=== PATIENT | female | born 1960 | race Caucasian/White ===

== ENCOUNTER 2018-05-05 20:10 | Inpatient (IN) | payer OTHER ==
[2018-05-05] MEDS ORDERED: ALBUTEROL/IPRATROPIUM (NEB) 3 ML AMP HHN (21:30)
[2018-05-05] MEDS ORDERED: NACL 0.9% 3 ML SYG IV (21:30)
[2018-05-05] MEDS: DEXTROSE 5%-0.45% NACL 1,000 ML IV (22:35)
[2018-05-05] MEDS: morphine 2 MG INJ IV (22:42)
[2018-05-06] MEDS: KETOROLAC 30 MG INJ IV ×3 (00:03→13:55)
[2018-05-06 00:50] LABS: ADD MAN DIFF? NO
[2018-05-06 00:53] LABS: BASOPHILS % 0.4 % (0.0-2.0); EOSINOPHILS % 0.2 % (0.0-7.0); HEMOGLOBIN 12.4 g/dl (12.0-16.0); LYMPHOCYTES # 2.2 10^3/ul (0.8-2.9); LYMPHOCYTES % 24.6 % (15.0-51.0); MEAN CORPUSCULAR HGB CONC 33.5 g/dl (32.0-37.0); MEAN CORPUSCULAR VOLUME 86.4 fl (82.0-101.0); MEAN PLATELET VOLUME 10.1 fl (7.4-10.4); MONOCYTE # 0.7 10^3/ul (0.3-0.9); MONOCYTES % 7.4 % (0.0-11.0); NEUTROPHIL # 6.1 10^3/ul (1.6-7.5); NEUTROPHILS % 67.1 % (39.0-77.0); PLATELET COUNT 220 10^3/UL (140-415); RED BLOOD COUNT 4.28 10^6/ul (4.20-5.40); RED CELL DISTRIBUTION WIDTH 13.7 % (11.5-14.5)
[2018-05-06 00:53] LABS: WHITE BLOOD COUNT 9.1 10^3/ul (4.8-10.8)
[2018-05-06 01:14] LABS: CREATINE KINASE 66 IU/L (23-200)
[2018-05-06 01:15] LABS: ALANINE AMINOTRANSFERASE 31 IU/L (13-69); ALBUMIN 4.1 g/dl (3.3-4.9); ALBUMIN/GLOBULIN RATIO 1.46; ALKALINE PHOSPHATASE 67 IU/L (42-121); ANION GAP 11 (5-13); ASPARTATE AMINO TRANSFERASE 33 IU/L (15-46); BILIRUBIN,INDIRECT 0.5 mg/dl (0-1.1); BILIRUBIN,TOTAL 0.5 mg/dl (0.2-1.3); BLOOD UREA NITROGEN 8 mg/dl (7-20); CALCIUM 9.3 mg/dl (8.4-10.2); CARBON DIOXIDE 25 mmol/L (21-31); CHLORIDE 102 mmol/L (97-110); CREATININE 0.57 mg/dl (0.44-1.00); Estimated GFR > 60 mL/min (>60); GLUCOSE 114 mg/dl (70-220); MAGNESIUM 1.9 mg/dl (1.7-2.5); PHOSPHORUS 3.7 mg/dl (2.5-4.9); POTASSIUM 3.5 mmol/L (3.5-5.1); SODIUM 138 mmol/L (135-144); TOTAL PROTEIN 6.9 g/dl (6.1-8.1)
[2018-05-06 01:25] LABS: CK INDEX 0.8; CK-MB 0.52 ng/ml (0.0-2.4); TROPONIN-I < 0.012 ng/ml (0.000-0.120)
[2018-05-06] MEDS ORDERED: EPHEDrine SULFATE 50 MG/5 ML SYG (07:00)
[2018-05-06] MEDS: DEXTROSE 5%-0.45% NACL 1,000 ML IV ×2 (08:33→18:03)
[2018-05-06] MEDS: FAMOTIDINE 20 MG INJ IV ×2 (08:33→21:23)
[2018-05-06 08:49] LABS: CREATINE KINASE 52 IU/L (23-200)
[2018-05-06 08:55] LABS: LIPASE 47 U/L (23-300)
[2018-05-06 08:57] LABS: CK INDEX 0.8; CK-MB 0.42 ng/ml (0.0-2.4); TROPONIN-I < 0.012 ng/ml (0.000-0.120)
[2018-05-06] MEDS: PIPER-TAZO 3.375 GM IV (PMX) 100 ML IVPB ×2 (13:39→18:00)
[2018-05-06] MEDS ORDERED: ROCURONIUM 50 MG INJ (17:27)
[2018-05-06] MEDS ORDERED: ROPIVACAINE 0.5 % 30 ML VIAL (17:27)
[2018-05-06] MEDS ORDERED: PROPOFOL 20 ML (17:27)
[2018-05-06] MEDS ORDERED: CEFAZOLIN 1 GM INJ (17:27)
[2018-05-06] MEDS ORDERED: MIDAZOLAM 1 MG/ML 2 ML INJ (17:27)
[2018-05-06] MEDS ORDERED: BUPIVACAINE 0.25%/EPI (SDV) 30 ML INJ (17:36)
[2018-05-06] MEDS ORDERED: LIDOCAINE 1% (STERILE-PAK) 30 ML INJ (17:36)
[2018-05-06] MEDS ORDERED: PHENYLephrine (100 MCG/ML) 5ML SYG (18:18)
[2018-05-06] MEDS ORDERED: ONDANSETRON 4 MG INJ (18:26)
[2018-05-06] MEDS ORDERED: ACETAMINOPHEN 1000MG/100ML IV 100 ML (18:26)
[2018-05-06] MEDS ORDERED: DEXAMETHASONE 4 MG/ML 1 ML INJ (18:27)
[2018-05-06] MEDS ORDERED: METOCLOPRAMIDE 10 MG INJ (18:27)
[2018-05-06] MEDS ORDERED: KETOROLAC 30 MG INJ (18:27)
[2018-05-06] MEDS ORDERED: HYDROmorphONE 1 MG/5 ML IV SYRINGE IV (18:30)
[2018-05-06] MEDS ORDERED: FENTAnyl 50 MCG/ML VIAL IV ×3 (18:30)
[2018-05-06] MEDS ORDERED: EPHEDrine SULFATE 50 MG/5 ML SYG IV (18:30)
[2018-05-06] MEDS ORDERED: LABETALOL HCL 20MG INJ IV (18:30)
[2018-05-06] MEDS ORDERED: MEPERIDINE 25 MG INJ IV (18:30)
[2018-05-06] MEDS ORDERED: DIPHENHYDRAMINE 50 MG INJ IV (18:30)
[2018-05-06] MEDS ORDERED: METOCLOPRAMIDE 10 MG INJ IV (18:30)
[2018-05-06] MEDS ORDERED: OXYCODONE/ACETAMINOPHEN (5/325) TAB PO (18:30)
[2018-05-06] MEDS ORDERED: ONDANSETRON 4 MG INJ IV (18:30)
[2018-05-06] MEDS ORDERED: metroNIDAZOLE 500 MG/NS (PMX) 100 ML IVPB (18:31)
[2018-05-06] MEDS ORDERED: NEOSTIGMINE 3 MG/3 ML SYRINGE (18:59)
[2018-05-06] MEDS ORDERED: GLYCOPYRROLATE 0.4 MG INJ (18:59)
[2018-05-06] MEDS: HYDROmorphONE 1 MG/5 ML IV SYRINGE IV ×2 (19:26→19:44)
[2018-05-07] MEDS: PIPER-TAZO 3.375 GM IV (PMX) 100 ML IVPB ×4 (00:24→17:11)
[2018-05-07] MEDS: DEXTROSE 5%-0.45% NACL 1,000 ML IV (00:24)
[2018-05-07] MEDS: morphine 2 MG INJ IV (05:42)
[2018-05-07 07:16] LABS: ADD MAN DIFF? NO
[2018-05-07 07:25] LABS: WHITE BLOOD COUNT 6.2 10^3/ul (4.8-10.8)
[2018-05-07 07:25] LABS: BASOPHILS % 0.3 % (0.0-2.0); HEMATOCRIT 34.7 % (37.0-47.0); HEMOGLOBIN 11.7 g/dl (12.0-16.0); LYMPHOCYTES # 0.8 10^3/ul (0.8-2.9); LYMPHOCYTES % 13.1 % (15.0-51.0); MEAN CORPUSCULAR HEMOGLOBIN 29.4 pg (29.0-33.0); MEAN CORPUSCULAR HGB CONC 33.7 g/dl (32.0-37.0); MEAN CORPUSCULAR VOLUME 87.2 fl (82.0-101.0); MEAN PLATELET VOLUME 10.5 fl (7.4-10.4); MONOCYTE # 0.4 10^3/ul (0.3-0.9); MONOCYTES % 5.8 % (0.0-11.0); NEUTROPHILS % 80.5 % (39.0-77.0); PLATELET COUNT 212 10^3/UL (140-415); RED BLOOD COUNT 3.98 10^6/ul (4.20-5.40)
[2018-05-07 07:44] LABS: MAGNESIUM 1.9 mg/dl (1.7-2.5)
[2018-05-07 07:50] LABS: ALANINE AMINOTRANSFERASE 107 IU/L (13-69); ALBUMIN 3.5 g/dl (3.3-4.9); ALBUMIN/GLOBULIN RATIO 1.29; ALKALINE PHOSPHATASE 82 IU/L (42-121); ANION GAP 6 (5-13); ASPARTATE AMINO TRANSFERASE 146 IU/L (15-46); BILIRUBIN,INDIRECT 0.5 mg/dl (0-1.1); BILIRUBIN,TOTAL 0.5 mg/dl (0.2-1.3); BLOOD UREA NITROGEN 4 mg/dl (7-20); CARBON DIOXIDE 28 mmol/L (21-31); CHLORIDE 107 mmol/L (97-110); CREATININE 0.65 mg/dl (0.44-1.00); Estimated GFR > 60 mL/min (>60); GLUCOSE 119 mg/dl (70-220); POTASSIUM 4.4 mmol/L (3.5-5.1); SODIUM 141 mmol/L (135-144); TOTAL PROTEIN 6.2 g/dl (6.1-8.1)
[2018-05-07] MEDS: FAMOTIDINE 20 MG INJ IV (08:54)
[2018-05-07] MEDS: KETOROLAC 30 MG INJ IV ×2 (09:01→15:23)
[2018-05-07] MEDS: SERTRALINE 50 MG TAB PO (11:36)
[2018-05-07] MEDS: METHOCARBAMOL 500 MG TAB PO ×2 (12:15→21:16)
[2018-05-08] MEDS: PIPER-TAZO 3.375 GM IV (PMX) 100 ML IVPB ×2 (00:26→05:32)
[2018-05-08] MEDS: KETOROLAC 30 MG INJ IV (03:32)
[2018-05-08 06:44] LABS: ADD MAN DIFF? NO
[2018-05-08 06:51] LABS: BASOPHIL # 0.1 10^3/ul (0.0-0.1); BASOPHILS % 0.7 % (0.0-2.0); EOSINOPHILS # 0.1 10^3/ul (0.0-0.5); EOSINOPHILS % 2.1 % (0.0-7.0); HEMATOCRIT 35.5 % (37.0-47.0); HEMOGLOBIN 11.9 g/dl (12.0-16.0); LYMPHOCYTES # 2.5 10^3/ul (0.8-2.9); LYMPHOCYTES % 36.2 % (15.0-51.0); MEAN CORPUSCULAR HEMOGLOBIN 29.5 pg (29.0-33.0); MEAN CORPUSCULAR HGB CONC 33.5 g/dl (32.0-37.0); MEAN CORPUSCULAR VOLUME 87.9 fl (82.0-101.0); MEAN PLATELET VOLUME 10.5 fl (7.4-10.4); MONOCYTE # 0.5 10^3/ul (0.3-0.9); NEUTROPHIL # 3.7 10^3/ul (1.6-7.5); NEUTROPHILS % 53.9 % (39.0-77.0); PLATELET COUNT 204 10^3/UL (140-415); RED BLOOD COUNT 4.04 10^6/ul (4.20-5.40); RED CELL DISTRIBUTION WIDTH 13.9 % (11.5-14.5)
[2018-05-08 06:51] LABS: WHITE BLOOD COUNT 6.8 10^3/ul (4.8-10.8)
[2018-05-08 07:32] LABS: ALANINE AMINOTRANSFERASE 101 IU/L (13-69); ALBUMIN 3.5 g/dl (3.3-4.9); ALBUMIN/GLOBULIN RATIO 1.02; ALKALINE PHOSPHATASE 100 IU/L (42-121); ANION GAP 7 (5-13); ASPARTATE AMINO TRANSFERASE 101 IU/L (15-46); BILIRUBIN,INDIRECT 0.5 mg/dl (0-1.1); BILIRUBIN,TOTAL 0.5 mg/dl (0.2-1.3); BLOOD UREA NITROGEN 3 mg/dl (7-20); CARBON DIOXIDE 26 mmol/L (21-31); CHLORIDE 110 mmol/L (97-110); CREATININE 0.64 mg/dl (0.44-1.00); Estimated GFR > 60 mL/min (>60); GLUCOSE 87 mg/dl (70-220); POTASSIUM 3.5 mmol/L (3.5-5.1); SODIUM 143 mmol/L (135-144); TOTAL PROTEIN 6.9 g/dl (6.1-8.1)
[2018-05-08 07:43] LABS: MAGNESIUM 2.1 mg/dl (1.7-2.5)
[2018-05-08] MEDS: METHOCARBAMOL 500 MG TAB PO ×2 (08:11→13:47)
[2018-05-08] MEDS: SERTRALINE 50 MG TAB PO (08:11)
[2018-05-08] MEDS: CIPROFLOXACIN 500 MG TAB PO (11:54)
[2018-05-08] MEDS: metroNIDAZOLE 500 MG TAB PO (13:47)
[2018-05-08] MEDS: ONDANSETRON 4 MG INJ IV (13:50)
== END 2018-05-08 16:50 | disposition home health service (06) | DRG 419 ==
LOC: 2NE 20:10
PROC: 0FT44ZZ Resection of Gallbladder, Percutaneous Endoscopic Approach (ICD-10-PCS; principal; 2018-05-06 18:02)
DX: K80.00 Calculus of gallbladder with acute cholecystitis without obstruction (principal); F32.9 Major depressive disorder, single episode, unspecified; F41.9 Anxiety disorder, unspecified; M54.9 Dorsalgia, unspecified
CPT/HCPCS: 76705; 78226; 80053; 82550; 82553; 83690; 83735; 84100; 84484; 84703; 85025; 86850; 86900; 86901; 88304; 93005